=== PATIENT | female | born 1965 | race Caucasian/White ===

== ENCOUNTER 2020-04-24 11:08 | Emergency (ER) | payer OTHER, SELFPAY ==
--- NOTE | 2020-04-24 11:14 | DI.RAD.S_ITS ---
PROCEDURE: XR KNEE LT 1TO2V INDICATIONS: injury severe pain TECHNIQUE: AP and cross-table lateral views of the knee were acquired. COMPARISON: None. FINDINGS: Bones: No fractures or dislocations. Mild osteophyte formation of the medial and patellofemoral compartments. No suspicious bony lesions. Soft tissues: No joint effusion. No suspicious soft tissue calcifications. IMPRESSION: No acute bony abnormality. Mild degenerative changes of the medial and patellofemoral compartments. Dictated by: Bill Villatoro M.D. on 04/24/2020 at 10:54 Approved by: Bill Villatoro M.D. on 04/24/2020 at 10:55
[2020-04-24 11:16] VITALS: BP 176/93; PULSE 81; RESP 16; TEMP 37.2; O2SAT 99; BMI 27.4
[2020-04-24] MEDS: MORPHINE 4 MG/ML INJ IM (11:21)
--- NOTE | 2020-04-24 11:23 | ED_ITS ---
HPI - Extremity Injury (Lower) General Chief Complaint: Extremity Injury, Lower Stated Complaint: Fall Time Seen by Provider: 04/24/20 11:14 Source: patient Mode of arrival: EMS Limitations: no limitations History of Present Illness HPI Narrative: Patient is a 54-year-old female with history of paroxysmal atrial fibrillation on Eliquis who presents with left knee pain. [place] something happened she is not sure what but it she heard a pop and the pain was so severe a it dropped her. She now is unable to get around or weight bear. Any movement causes excruciating pain. She did not hit her head there was no loss of consciousness. She denies numbness or tingling. She can still move her toes. MD complaint: knee injury Onset (ago): hour(s) Related Data Previous Rx's Medication Instructions Recorded hydrocodone-acetaminophen [Alvin] 1 tab PO Q6H PRN #10 tab 04/24/20 Allergies Allergy/AdvReac Type Severity Reaction Status Date / Time No Known Drug Allergies Allergy Verified 04/24/20 11:21 Review of Systems Review of Systems Narrative: GENERAL: Denies chills,fever HEENT: Denies throat pain RESPIRATORY: Denies dyspnea, cough, wheezing CARDIOVASCULAR: Denies chest pain, palpitations GASTROINTESTINAL: Denies nausea, vomiting MUSCULOSKELETAL: See HPI SKIN: No rash, no laceration, no pruritus NEUROLOGIC: Denies weakness, dizziness, headache, numbness 8 point review of systems is negative except for those stated above and HPI Patient History Social History Smoking Status: Never smoker Smoking Status: Never smoker alcohol intake frequency: other Substance Use Type: marijuana Exam Initial Vital Signs Initial Vital Signs: Vital Signs Temperature 99 F 04/24/20 11:16 Pulse Rate 81 04/24/20 11:16 Respiratory Rate 16 04/24/20 11:16 Blood Pressure 176/93 H 04/24/20 11:16 Pulse Oximetry 99 04/24/20 11:16 GENERAL: Well-appearing, well-nourished and in no acute distress. CARDIOVASCULAR: peripheral pulses in tact, cap refill <2 sec RESPIRATORY: No respiratory distress, speaks in full sentences without difficulty EXTREMITIES: Normal range of motion, no clubbing or edema. Neurovascularly intact Left knee slightly on stable some laxity felt in drawer test able plantar and dorsiflex good strong distal pedal pulse minimal swelling no erythema no abrasion NEUROLOGICAL: Cranial nerves II through XII grossly intact. Normal gait and speech. SKIN: Warm, dry, no petechiae, no rashes or lesions. Procedures Orthopedic Splinting/Casting Injury #1: Side: left Lower Extremity Injury Location: knee Lower Extremity Immobilizer: knee immobilizer Other Orthopedic Equipment: crutches Post splinting neuro exam: intact Post splinting vascular exam: intact Placed by: Nursing Course Orders Ordered: ED Orders 04/24/20 11:14 XR knee LT 3V Stat Discontinued Medications Morphine Sulfate (Morphine) 4 mg IM NOW ONE Stop: 04/24/20 11:15 Last Admin: 04/24/20 11:21 Dose: 4 mg Documented by: THEO Vital Signs Vital signs: Vital Signs - 8 hr 04/24/20 11:16 04/24/20 11:58 04/24/20 12:00 Temperature 99 F Pulse Rate 81 66 65 Respiratory Rate 16 Blood Pressure 176/93 H Pulse Oximetry 99 98 98 04/24/20 12:11 Temperature Pulse Rate Respiratory Rate Blood Pressure 146/95 H Pulse Oximetry [facility] - Extremity Injury (Lower) Imaging Data Extremity x-ray #1: Radiologist's Impression: PROCEDURE: XR KNEE LT 1TO2V INDICATIONS: injury severe pain TECHNIQUE: AP and cross-table lateral views of the knee were acquired. COMPARISON: None. FINDINGS: Bones: No fractures or dislocations. Mild osteophyte formation of the medial and patellofemoral compartments. No suspicious bony lesions. Soft tissues: No joint effusion. No suspicious soft tissue calcifications. IMPRESSION: No acute bony abnormality. Mild degenerative changes of the medial and patellofemoral compartments. Dictated by: Bill Villatoro M.D. on 04/24/2020 at 10:54 [facility] Narrative Medical decision making narrative: Pain is much better after morphine. He will likely need an outpatient MRI. She is unable to weightbear she is given crutches and knee immobilizer. Discharge Plan Departure Patient Disposition: Home Clinical Impression: Left knee sprain Qualifiers: Encounter type: initial encounter Involved ligament of knee: unspecified ligament Qualified Code(s): S83.92XA - Sprain of unspecified site of left knee, initial encounter Discharge Date/Time: 04/24/20 12:43 Instructions: DI for Knee Sprain Activity Restrictions/Additional Instructions: *You have been diagnosed with left knee sprain *What to do: Recommend knee brace and crutches as needed. You will need an outpatient MRI and follow up closely with orthopedic however at this time and this is not indicated in the emergency department *Continue to take medications as directed Alvin 1 tablet every 6 hours if needed for severe pain *Follow up with your primary care provider in 2-3 days *Return to ER if you should have increasing weakness numbness or tingling, worsening pain or any new, worsening or concerning symptoms CONTROLLED SUBSTANCE DISCHARGE (Narcotoic/benzodiazepine/Flexeril/Phenergan) 1. You have been prescribed narcotic medications, it does have acetaminophen/Tylenol/paracetamol in it so do not take extra Tylenol or Tylenol containing products TRAMADOL DOES NOT CONTAIN TYLENOL 2. Please understand that we cannot provide further refills of narcotics, benzodiazepines or controlled substances through the ED and her pain management will need to be through your provider. 3. While on these medications you cannot drive or operate heavy machinery. 4. You cannot sign legal documents or perform any duties such as this. 5. As long as you're taking opiate pain medications he should also be taking a stool softener such as Colace, Dulcolax, MiraLAX or prune juice, to help avoid constipation. Prescriptions: New hydrocodone-acetaminophen [Alvin] 5-325 mg tablet 1 tab PO Q6H PRN (Reason: pain) Qty: 10 RF: 0 Referrals: [facility] [Provider Group]
[2020-04-24 11:58] VITALS: PULSE 66; O2SAT 98
[2020-04-24 12:00] VITALS: PULSE 65; O2SAT 98
[2020-04-24 12:11] VITALS: BP 146/95
== END 2020-04-24 12:43 | disposition home or self-care (01) ==
LOC: ED 12:09
PROVIDERS: Emergency Provider Emergency Medicine
DX: S83.92XA Sprain of unspecified site of left knee, initial encounter (principal); I48.0 Paroxysmal atrial fibrillation; Z79.01 Long term (current) use of anticoagulants
CPT/HCPCS: 73562; 96372; 99283; 99284; J2270